=== PATIENT | male | born 1940 | race Caucasian/White ===

== ENCOUNTER → 2020-10-26 | Outpatient (CLI) | payer MEDICARE, BC ==
[~2020-10-26] MED LIST: AMARYL4 MG PO; ASPIRIN CHEWABL81 MG PO; AUGMENTIN 875-1 EACH PO; BACTROBAN CREAM15 GM TOP; ELIQUIS5 MG PO; FLOMAX0.4 MG PO; GLUCOPHAGE XR500 MG PO; HUMALOG100 UNIT/3 SQ; ICAPS AREDS SO1 EACH PO; LISINOPRIL2.5 MG PO; LOPRESSOR 25 MG25 MG PO; LOPRESSOR 50 MG50 MG PO; MUPIROCIN22 GM TOP; ROBITUSSIN AC PO; SUPER B COMPLE150 MG PO; TOUJEO MAX300 UNIT/1 SQ; VIBRAMYCIN100 MG PO; VITAMIN B-121000 MCG PO; VITAMIN D325 MC1 PO; VOLTAREN100 GM TOP; ZYLOPRIM 300 M300 MG PO; ZYRTEC10 MG PO
== END ==
LOC: KOH-I 10-23 11:00
DX: E11.42 Type 2 diabetes mellitus with diabetic polyneuropathy (principal); I73.89 Other specified peripheral vascular diseases; N18.30 Chronic kidney disease, stage 3 unspecified; N28.1 Cyst of kidney, acquired
CPT/HCPCS: 76775; 93925

== ENCOUNTER → 2021-02-21 | Outpatient (CLI) | payer MEDICARE, BC | LOC: KOH-I 15:34 | DX: J20.9 Acute bronchitis, unspecified (principal); R05 Cough | CPT/HCPCS: 71046 ==

== ENCOUNTER 2021-05-28 16:18 | Emergency (ER) | payer MEDICARE, BC ==
[~2021-05-28] VITALS: Ht 177.8 cm; Wt 132.9 kg
== END 2021-05-28 18:50 | disposition home or self-care (01) ==
LOC: ER1 16:18
DX: Z23 Encounter for immunization (principal); U07.1 COVID-19; I12.9 Hypertensive chronic kidney disease with stage 1 through stage 4 chronic kidney disease, or unspecified chronic kidney disease; E11.22 Type 2 diabetes mellitus with diabetic chronic kidney disease; N18.9 Chronic kidney disease, unspecified; Z88.8 Allergy status to other drugs, medicaments and biological substances
CPT/HCPCS: 99284; M0243

== ENCOUNTER → 2021-08-02 | Outpatient (CLI) | payer MEDICARE, BC | LOC: RT 12:28 | DX: I10 Essential (primary) hypertension (principal); E11.9 Type 2 diabetes mellitus without complications | CPT/HCPCS: 93005 ==

== ENCOUNTER → 2022-03-18 | Outpatient (CLI) | payer MEDICARE, BC | LOC: KOH-I 13:30 | DX: I73.89 Other specified peripheral vascular diseases (principal) | CPT/HCPCS: 93925 ==